=== PATIENT | female | born 1970 | race Caucasian/White ===

== ENCOUNTER 2024-12-29 08:56 | Emergency (ER) | payer MEDICAID ==
[~2024-12-29] VITALS: Ht 167.6 cm; Wt 88.0 kg
[2024-12-29 08:59] VITALS: O2SAT 98
[2024-12-29] MEDS ORDERED: AMOX1TAB16 MT (10:36)
[2024-12-29] MEDS: KETOROLAC 15MG/ML VIAL IM ONE (10:43)
[2024-12-29] MEDS: ACETAMINOPHEN 500MG TABLET PO ONE (10:43)
[2024-12-29 11:20] VITALS: BP 137/82; PULSE 79; RESP 18; TEMP 36.7; O2SAT 98
== END 2024-12-29 10:55 | disposition home or self-care (01) ==
LOC: ER 09:19
DX: K04.7 Periapical abscess without sinus (principal); Z88.6 Allergy status to analgesic agent
CPT/HCPCS: 99283; 96372; J1885